=== PATIENT | female | born 1990 | race African-American/Black ===

== ENCOUNTER 2017-06-13 16:50 | Inpatient (IN) | payer OTHER ==
[~2017-06-13] VITALS: Ht 171.4 cm; Wt 96.6 kg
[2017-06-13 17:31] VITALS: BP 117/77; PULSE 82; RESP 18; Ht 171.4 cm; Wt 96.6 kg
[2017-06-13] MEDS ORDERED: PREN-103 PO (17:34)
[2017-06-13] MEDS ORDERED: LIDOCAINE 1% (MPF) 30 ML INJ INJ PRN (18:00)
[2017-06-13] MEDS ORDERED: OXYTOCIN 30 UNITS/LR 500 ML IV PRN (18:00)
[2017-06-13] MEDS ORDERED: OXYTOCIN 30 UNITS/LR 500 ML IV SCH ×2 (18:00)
[2017-06-13] MEDS ORDERED: IBUPROFEN 600 MG TAB PO PRN (18:00)
[2017-06-13] MEDS ORDERED: MISOPROSTOL 200 MCG TAB PR PRN (18:00)
[2017-06-13] MEDS ORDERED: LACTATED RINGER'S 1,000 ML IV PRN (18:00)
[2017-06-13] MEDS ORDERED: BUTORPHANOL 2 MG INJ IV PRN (18:00)
[2017-06-13] MEDS ORDERED: METHYLERGONOVINE 0.2 MG INJ IM PRN (18:00)
[2017-06-13] MEDS ORDERED: CARBOPROST 250 MCG INJ IM PRN (18:00)
[2017-06-13] MEDS: LACTATED RINGER'S 1,000 ML IV SCH (18:04)
[2017-06-13 18:28] LABS: BASOPHILS % 0.4 % (0.0-2.0); EOSINOPHILS % 0.1 % (0.0-7.0); HEMATOCRIT 39.9 % (37.0-47.0); HEMOGLOBIN 13.4 g/dl (12.0-16.0); LYMPHOCYTES # 1.4 10^3/ul (0.8-2.9); LYMPHOCYTES % 17.6 % (15.0-51.0); MEAN CORPUSCULAR HEMOGLOBIN 29.6 pg (29.0-33.0); MEAN CORPUSCULAR HGB CONC 33.6 g/dl (32.0-37.0); MEAN CORPUSCULAR VOLUME 88.1 fl (82.0-101.0); MEAN PLATELET VOLUME 11.2 fl (7.4-10.4); MONOCYTE # 0.5 10^3/ul (0.3-0.9); MONOCYTES % 6.8 % (0.0-11.0); NEUTROPHIL # 5.9 10^3/ul (1.6-7.5); NEUTROPHILS % 74.1 % (39.0-77.0); PLATELET COUNT 245 10^3/UL (140-415); RED BLOOD COUNT 4.53 10^6/ul (4.20-5.40); RED CELL DISTRIBUTION WIDTH 13.2 % (11.5-14.5); WHITE BLOOD COUNT 7.9 10^3/ul (4.8-10.8)
[2017-06-13] MEDS ORDERED: DINOPROSTONE 10 MG VAG SUPP VAG ONE (18:30)
[2017-06-13 18:45] LABS: INR 0.91; PROTIME 12.2 Sec (12.2-14.2)
[2017-06-13 18:46] LABS: PARTIAL THROMBOPLASTIN TIME 29.5 Sec (25.0-35.0)
--- NOTE | 2017-06-13 18:51 | RADRPT ---
PROCEDURE: US OB. CLINICAL INDICATION: Size and dates , post dates TECHNIQUE: Multiple sonographic images of the pelvis and gravid uterus were obtained. The images were reviewed on a PACS workstation. COMPARISON: No prior studies are available for comparison. FINDINGS: There is a single viable intrauterine gestation. Cardiac activity is present with 135 beats per min kaylene. There is a vertex presentation. The placenta is anterior. There is no evidence for an abruption or placenta previa. Measurements were made in order to determine age. The results are as follows: BPD =9.8 cm HC =33.9 cm AC =35.5 cm FL =7.8 cm Estimated gestational age of approximately 39 weeks and 4 days based on ultrasound measurements. Clinical age: 40 weeks and 6 days. The estimated date of delivery is 06/16/2017, based on ultrasound measurements. The EFW = 3812 g, 54%, based on LMP age. RPTAT: AA IMPRESSION: Single viable intrauterine gestation of approximately 39 weeks and 4 days based on ultrasound measu rements. .Cuong Burris MD, MD Date Time Electronically viewed and signed by .Cuong Burris MD, on 06/13/2017 18:50 .S/
[2017-06-14] MEDS: LACTATED RINGER'S 1,000 ML IV SCH ×5 (00:31→22:50)
[2017-06-14] MEDS: OXYTOCIN 30 UNITS/LR 500 ML IV SCH (09:04)
[2017-06-14] MEDS ORDERED: FENTAnyl 2MCG/ML-ROPIV 0.2% 100 ML ONE (13:16)
[2017-06-14] MEDS ORDERED: ONDANSETRON 4 MG INJ IV PRN (13:30)
[2017-06-14] MEDS ORDERED: DIPHENHYDRAMINE 50 MG INJ IV PRN (13:30)
[2017-06-14] MEDS ORDERED: NALOXONE (0.4 MG/ML) INJ IV PRN (13:30)
[2017-06-14] MEDS ORDERED: EPHEDrine SULFATE 50 MG/5 ML SYG IV PRN (13:30)
--- NOTE | 2017-06-14 15:04 | HP ---
Date/Time of Note Date/Time of Note DATE: 06/14/17 TIME: 15:02 OB - History Hx of Present Free Text/Dictation INDUCTION FOR 40.6 Care: Good Care Ultrasounds: Normal mid trimester US Obstetrical Complications: None Medical Complications: None Past Family/Social History * Past Medical, Surgical, Family and Obstetric Histories reviewed from chart. OB Admission Exam Vital Signs Vital Signs Vital Signs Date Time Temp Pulse Resp B/P Pulse Ox O2 Delivery O2 Flow Rate FiO2 06/13/17 17:31 98.3 82 18 117/77 Room Air Physical Exam HEENT: WNL Heart: Rhythm Normal Lungs: Clear, Equal Abdomen: WNL Extremities: Normal Reflexes: Normal Cervical Dilatation: 1cm Effacement: 50% Station: -3 Membranes: Ruptured Amniotic Fluid: Clear Heart Rate: 120's Accelerations: Accelerations Present Decelerations: No Decelerations Varibility: Moderate Contractions on Admission: 6-10 Minutes Apart Intensity: Moderate Last 72 hours Lab Results CBC & BMP 06/13/17 17:20 OB Assessment/Plan Reason for admission: induction of labor Plan: Induction UDAY SORENSEN MD Jun 14, 2017 15:04
[2017-06-14] MEDS ORDERED: DEXTROSE 5%-LR 1,000 ML IV PRN (21:00)
[2017-06-14] MEDS ORDERED: AMPICILLIN 2 GM/NS (PMX) 100 ML IV ONE (21:00)
[2017-06-15] MEDS: FENTAnyl 2MCG/ML-ROPIV 0.2% 100 ML BAG EPI SCH ×2 (01:05→12:44)
[2017-06-15] MEDS: AMPICILLIN 1 GM/NS (PMX) 50 ML IV SCH ×6 (01:05→21:00)
[2017-06-15] MEDS: LACTATED RINGER'S 1,000 ML IV SCH ×2 (01:06→06:39)
[2017-06-15] MEDS: OXYTOCIN 30 UNITS/LR 500 ML IV SCH (04:04)
--- NOTE | 2017-06-15 14:59 | PN ---
Date/Time of Note Date/Time of Note DATE: 06/15/17 TIME: 14:56 OB Subjective Subjective Subjective Comfortable with epidural. Denies any complaints. On ampicillin due to prolonged rupture membrane OB Objective Objective Objective General appearance: Alert and oriented 4. Does not appear to be in acute distress. Abdomen: Soft gravid, Fundal height consistent with gestational age. Estimated weight 7 lbs. 8 oz. Vaginal examination: 5.5/100%, -1 to 0 Vertex presentation NST: Category 2. Good variability. Some variable decelerations with quick recovery IUPC placed OB Assessment/Plan Other Assessment: Active labor underwent induction due to postdates Currently in first stage of labor GBS negative Receiving Pitocin NST category 2 We will continue to watch closely Anticipate CORBY CURRAN MD Jun 15, 2017 14:59
[2017-06-15 21:50] VITALS: BP 116/65; PULSE 97; RESP 19
[2017-06-15] MEDS ORDERED: LACTATED RINGER'S 1,000 ML IV* SCH (23:09)
[2017-06-15] MEDS ORDERED: BENZOCAINE 20% 56 ML SPRAY TOP PRN (23:30)
[2017-06-15] MEDS ORDERED: SENNA/DOCUSATE NA (8.6MG/50MG) TAB PO PRN (23:30)
[2017-06-15] MEDS ORDERED: WITCH HAZEL/GLYCERIN PAD PR PRN (23:30)
[2017-06-15] MEDS ORDERED: HYDROCODONE/APAP (5/325) TAB PO PRN ×2 (23:30)
[2017-06-15] MEDS ORDERED: CARBOPROST 250 MCG INJ IM PRN (23:30)
[2017-06-15] MEDS ORDERED: OXYTOCIN 30 UNITS/LR 500 ML IV PRN (23:30)
[2017-06-15] MEDS ORDERED: LANOLIN 7 GM TUBE TOP PRN (23:30)
[2017-06-15] MEDS ORDERED: MISOPROSTOL 200 MCG TAB PR PRN (23:30)
[2017-06-15] MEDS ORDERED: METHYLERGONOVINE 0.2 MG INJ IM PRN (23:30)
[2017-06-15] MEDS ORDERED: DIBUCAINE 1% 30 GM OINT PR PRN (23:30)
[2017-06-16] MEDS ORDERED: IBUPROFEN 600 MG TAB PO SCH
[2017-06-16] MEDS ORDERED: LACTATED RINGER'S 1,000 ML IV* SCH (00:10)
--- NOTE | 2017-06-16 00:10 | LDN ---
Date/Time of Note Date/Time of Note DATE: 06/16/17 TIME: 00:08 Delivery Summary June 15, 2017 Weeks of Gestation 41 weeks Placenta Delivered: Spontaneously Meconium: Thick Episiotomy: No Indication for episiotomy N/A Perineal laceration: 1 Laceration repair: first degree perineal and vaginal laceration and Bilateral labial laceration Perineal and vaginal lacerations repaired using 2-0 chromic Anesthesia type: None Estimated blood loss: 400 Sponge & Needle done & correct: Yes All needle counts correct: Yes Any foreign bodies felt in the: No Problems: Delivery Information Sex Infant Sex: female Apgars 1 Minute: 9 5 Minute: 9 Suctioning Nose & mouth suctioned at [place]: Yes Delee suction performed: Yes Umbilical Cord Cord presentations: no nuchal cord Cord Blood was obtained: Yes CORBY CURRAN MD Jun 16, 2017 00:10
[2017-06-16] MEDS ORDERED: morphine 4 MG/ML VIAL IV PRN (00:30)
[2017-06-16] MEDS ORDERED: CARBOPROST 250 MCG INJ IM PRN (00:30)
[2017-06-16] MEDS ORDERED: OXYTOCIN 30 UNITS/LR 500 ML IV PRN (00:30)
[2017-06-16] MEDS ORDERED: WITCH HAZEL/GLYCERIN PAD PR PRN (00:30)
[2017-06-16] MEDS ORDERED: ZOLPIDEM 5 MG TAB PO PRN (00:30)
[2017-06-16] MEDS ORDERED: ACETAMINOPHEN 325 MG TAB PO PRN (00:30)
[2017-06-16] MEDS ORDERED: DIPHENHYDRAMINE 25 MG CAP PO PRN (00:30)
[2017-06-16] MEDS ORDERED: ONDANSETRON 4 MG INJ IV PRN (00:30)
[2017-06-16] MEDS ORDERED: LANOLIN 7 GM TUBE TOP PRN (00:30)
[2017-06-16] MEDS ORDERED: METHYLERGONOVINE 0.2 MG INJ IM PRN (00:30)
[2017-06-16] MEDS ORDERED: MISOPROSTOL 200 MCG TAB PR PRN (00:30)
[2017-06-16] MEDS ORDERED: HYDROCODONE/APAP (5/325) TAB PO PRN (00:30)
[2017-06-16 01:07] LABS: HEMATOCRIT 33.2 % (37.0-47.0); HEMOGLOBIN 11.5 g/dl (12.0-16.0)
[2017-06-16 04:10] VITALS: BP 118/77; PULSE 65; RESP 19
[2017-06-16] MEDS: IBUPROFEN 600 MG TAB PO SCH ×3 (05:31→17:18)
[2017-06-16 07:30] VITALS: BP 104/73; PULSE 63; RESP 16
[2017-06-16] MEDS: SENNA/DOCUSATE NA (8.6MG/50MG) TAB PO SCH ×2 (08:38→20:59)
[2017-06-16 09:59] LABS: ABNORMAL IP MESSAGE 1; HEMATOCRIT 35.9 % (37.0-47.0); HEMOGLOBIN 12.1 g/dl (12.0-16.0); MEAN CORPUSCULAR HEMOGLOBIN 29.2 pg (29.0-33.0); MEAN CORPUSCULAR HGB CONC 33.7 g/dl (32.0-37.0); MEAN CORPUSCULAR VOLUME 86.7 fl (82.0-101.0); MEAN PLATELET VOLUME 10.7 fl (7.4-10.4); PLATELET COUNT 206 10^3/UL (140-415); RED BLOOD COUNT 4.14 10^6/ul (4.20-5.40); RED CELL DISTRIBUTION WIDTH 13.2 % (11.5-14.5); WHITE BLOOD COUNT 25.6 10^3/ul (4.8-10.8)
[2017-06-16 10:05] LABS: POSITIVE DIFF @See below
[2017-06-16 11:56] LABS: EOSINOPHILS % (M) 3 % (0-7); MONOCYTES % (M) 5 % (0-11); PLATELET ESTIMATE NORMAL; POIKILOCYTOSIS 1+ (0-0)
--- NOTE | 2017-06-16 13:08 | PN ---
Date/Time of Note Date/Time of Note DATE: 06/16/17 TIME: 13:07 OB Subjective Subjective Subjective Post day 1 Patient is doing well, Ambulatory She is afebrile Abdomen is soft , Fundus is firm Moderate amount of lochia Breasts are soft, Nipples are intact No calf tenderness. Perineum is healing well. Laboratory Tests Test 06/16/17 00:42 06/16/17 09:35 Hemoglobin 11.5g/dl 12.1g/dl Hematocrit 33.2% 35.9% White Blood Count 25.610^3/ul Red Blood Count 4.1410^6/ul Mean Corpuscular Volume 86.7fl Mean Corpuscular Hemoglobin 29.2pg Mean Corpuscular Hemoglobin Concent 33.7g/dl Red Cell Distribution Width 13.2% Platelet Count 75382^3/UL Mean Platelet Volume 10.7fl Neutrophils % % Segmented Neutrophils % (Manual) 73% Band Neutrophils % (Manual) 16% Lymphocytes % % Lymphocytes % (Manual) 4% Monocytes % % Monocytes % (Manual) 5% Eosinophils % % Eosinophils % (Manual) 3% Basophils % % Nucleated Red Blood Cells % 0.0/100WBC Neutrophils # 10^3/ul Neutrophils # (Manual) 19.710^3/ul Band Neutrophils # 4.010^3/ul Absolute Lymphocytes (Manual) 1.010^3/ul Lymphocytes # 10^3/ul Monocytes # 10^3/ul Absolute Monocytes (Manual) 1.210^3/ul Eosinophils # 10^3/ul Basophils # 10^3/ul Nucleated Red Blood Cells # 10^3/ul Platelet Estimate NORMAL Poikilocytosis 1+ Current Medications Medications (Trade) Dose Ordered Sig/Anand Route PRN Reason Start Time Stop Time Status Last Admin Dose Admin Lactated Ringer's (Lr) 1,000 ml @ 125 mls/hr Q8H IV 06/13/17 17:35 06/15/17 23:11 DC 06/15/17 06:39 Butorphanol Tartrate (Stadol) 2 mg Q2H PRN IV PAIN 06/13/17 18:00 06/15/17 23:11 DC Lidocaine 30 ml 30 ml ONCE PRN INJ EPISIOTOMY/TEARING 06/13/17 18:00 06/15/17 23:11 DC Oxytocin/Lactated Ringer's 500 ml @ 125 mls/hr ONCE -MAY REPEAT X1 IV 06/13/17 18:00 06/15/17 23:11 DC 06/15/17 20:00 Oxytocin/Lactated Ringer's 500 ml @ 125 mls/hr ONCE IV 06/13/17 18:00 06/15/17 23:11 DC Ibuprofen 600 mg 600 mg ONCE PRN PO Mild Pain (Pain Score 1-3) 06/13/17 18:00 06/15/17 23:11 DC Lactated Ringer's 1,000 ml @ 2,000 mls/hr Q30M PRN IV PRE-EPIDURAL BOLUS 06/13/17 18:00 06/15/17 23:11 DC Oxytocin/Lactated Ringer's 500 ml @ 0 mls/hr ONCE PRN IV For Hemorrhage Management 06/13/17 18:00 06/15/17 23:11 DC Methylergonovine Maleate (Methergine) 0.2 mg ONCE PRN IM VAGINAL BLEEDING 06/13/17 18:00 06/15/17 23:11 DC Carboprost Tromethamine (Hemabate) 250 mcg ONCE PRN IM VAGINAL BLEEDING 06/13/17 18:00 06/15/17 23:11 DC Misoprostol (Cytotec) 1,000 mcg ONCE PRN DE VAGINAL BLEEDING 06/13/17 18:00 06/15/17 23:11 DC Dinoprostone 10 mg 10 mg ONCE ONCE VAG 06/13/17 18:30 06/13/17 18:31 DC 06/13/17 20:02 Oxytocin/Lactated Ringer's 500 ml @ 0 mls/hr Q0M IV 06/14/17 08:30 06/15/17 23:11 DC 06/15/17 04:04 Naloxone HCl (Narcan) 0.1 mg Q2M PRN IV FOR RESP RATE 8 OR LESS 06/14/17 13:30 06/15/17 13:29 DC Diphenhydramine HCl (Benadryl) 25 mg Q6H PRN IV ITCHING 06/14/17 13:30 06/15/17 13:29 DC Ondansetron HCl (Zofran Inj) 4 mg Q6H PRN IV NAUSEA AND/OR VOMITING 06/14/17 13:30 06/15/17 13:29 DC Fentanyl/ Ropivacaine 100 ml EPIDURAL INFUSION EPI 06/14/17 13:30 06/15/17 23:11 DC 06/15/17 12:44 Ephedrine Sulfate 5 mg 5 mg PRN PRN IV BLOOD PRESSURE SUPPORT 06/14/17 13:30 06/15/17 23:11 DC Fentanyl/ Ropivacaine 100 ml @ ud STK-MED ONCE .ROUTE 06/14/17 13:16 06/14/17 13:17 DC Dextrose/Lactated Ringer's 1,000 ml @ 125 mls/hr Q8H PRN IV FHR minimal variability 06/14/17 21:00 06/15/17 23:11 DC 06/15/17 03:40 Ampicillin 100 ml @ 100 mls/hr ONCE ONCE IV 06/14/17 21:00 06/14/17 21:59 DC 06/14/17 20:52 Ampicillin 50 ml @ 100 mls/hr Q4H IV 06/15/17 01:00 06/15/17 23:11 DC 06/15/17 17:13 Lactated Ringer's (Lr) 1,000 ml @ 125 mls/hr Q8H IV* 06/15/17 23:09 06/16/17 00:14 DC Ibuprofen (Motrin) 600 mg Q6 PO 06/16/17 00:00 06/16/17 00:14 DC 06/15/17 23:30 Acetaminophen/ Hydrocodone Bitart ([place] (5/325)) 1 tab Q4H PRN PO PAIN LEVEL 1-5 06/15/17 23:30 06/16/17 00:14 DC Acetaminophen/ Hydrocodone Bitart ([place] (5/325)) 2 tab Q4H PRN PO PAIN LEVEL 6-10 06/15/17 23:30 06/16/17 00:14 DC Senna/Docusate Sodium (Senokot-S) 1 tab BID PRN PO CONSTIPATION 06/15/17 23:30 06/16/17 00:14 DC Witch Ruma/ Glycerin (Tucks Pads) 1 pad BEDSIDE MEDICATION PRN DE HEMORRHOID/EPISIOTMY PAIN 06/15/17 23:30 06/16/17 00:14 DC 06/15/17 23:30 Benzocaine (Dermoplast [place]) 1 spray BEDSIDE MEDICATION PRN TOP HEMORRHOID/EPISIOTMY PAIN 06/15/17 23:30 06/16/17 00:14 DC 06/15/17 23:30 Dibucaine (Nupercainal) 1 applic BEDSIDE MEDICATION PRN DE HEMORRHOID/EPISIOTMY PAIN 06/15/17 23:30 06/16/17 00:14 DC Lanolin 1 applic 1 applic BEDSIDE MEDICATION PRN TOP BEDSIDE FOR MARLEEN TO NIPPLES 06/15/17 23:30 06/16/17 00:14 DC Oxytocin/Lactated Ringer's 500 ml @ 0 mls/hr ONCE PRN IV For Hemorrhage Management 06/15/17 23:30 06/16/17 00:14 DC Methylergonovine Maleate (Methergine) 0.2 mg ONCE PRN IM VAGINAL BLEEDING 06/15/17 23:30 06/16/17 00:14 DC Carboprost Tromethamine (Hemabate) 250 mcg ONCE PRN IM VAGINAL BLEEDING 06/15/17 23:30 06/16/17 00:14 DC Misoprostol 1000 mcg 1,000 mcg ONCE PRN DE VAGINAL BLEEDING 06/15/17 23:30 06/16/17 00:14 DC Lactated Ringer's (Lr) 1,000 ml @ 125 mls/hr Q8H IV* 06/16/17 00:10 06/16/17 07:34 DC Morphine Sulfate (morphine) 1 mg Q3 PRN IV PAIN LEVEL 6-10 06/16/17 00:30 Ibuprofen (Motrin) 600 mg Q6 PO 06/16/17 06:00 06/16/17 11:35 Acetaminophen/ Hydrocodone Bitart ([place] (5/325)) 2 tab Q4H PRN PO PAIN LEVEL 6-10 06/16/17 00:30 Ondansetron HCl (Zofran Inj) 4 mg Q6H PRN IV NAUSEA AND/OR VOMITING 06/16/17 00:30 Diphenhydramine HCl (Benadryl) 25 mg Q6H PRN PO PRURITUS 06/16/17 00:30 Zolpidem Tartrate (Ambien) 5 mg QHS PRN PO INSOMNIA 06/16/17 00:30 Senna/Docusate Sodium (Senokot-S) 1 tab BID PO 06/16/17 09:00 06/16/17 08:38 Witch Ruma/ Glycerin (Tucks Pads) 1 pad BEDSIDE MEDICATION PRN DE HEMORRHOID/EPISIOTMY PAIN 06/16/17 00:30 Lanolin (Pha-W-Ckyono) 1 applic BEDSIDE MEDICATION PRN TOP BEDSIDE FOR MARLEEN TO NIPPLES 06/16/17 00:30 Measles/Mumps/ Rubella Vaccine Live (Mmr Ii Vaccine) 0.5 ml ONCE ONCE SC* 06/18/17 09:00 06/18/17 09:01 Diphtheria/ Tetanus/Acell Pertussis (Adacel) 0.5 ml ONCE ONCE IM* 06/18/17 09:00 06/18/17 09:01 Varicella Virus Vaccine Live (Varivax Vaccine With Diluent) 1,350 unit ONCE ONCE SC* 06/18/17 09:00 06/18/17 09:01 Acetaminophen 650 mg 650 mg Q4H PRN PO ELEVATED TEMPERATURE 06/16/17 00:30 Oxytocin/Lactated Ringer's 500 ml @ 0 mls/hr ONCE PRN IV For Hemorrhage Management 06/16/17 00:30 06/16/17 02:52 Methylergonovine Maleate (Methergine) 0.2 mg ONCE PRN IM VAGINAL BLEEDING 06/16/17 00:30 06/16/17 02:56 Carboprost Tromethamine (Hemabate) 250 mcg ONCE PRN IM VAGINAL BLEEDING 06/16/17 00:30 Misoprostol (Cytotec) 1,000 mcg ONCE PRN DE VAGINAL BLEEDING 06/16/17 00:30 Breast feeding the new born. JUAN PABLO BRIGGS MD Jun 16, 2017 13:08
--- NOTE | 2017-06-16 14:22 | DS ---
Date/Time of Note Date/Time of Note DATE: 06/16/17 TIME: 14:21 Discharge Summary Admission/Discharge Info Admit Date/Time Jun 13, 2017 at 16:50 Discharge Date/Time Discharge Diagnosis TERM PREG Patient Condition: Stable Procedures VAGINAL DELIVERY Hospital Course UNREMARKABLE Home Meds Reported Medications Prenatl Vit6/Iron/FA/B12/Ca/D3 (Mteryti Combo Pack) 1 Each Tablet.seq, 1 EACH PO , TAB 06/13/17 Primary Care Provider Not On Staff Doctor Pending Labs Laboratory Tests Test 06/16/17 00:42 06/16/17 09:35 Hemoglobin 11.5g/dl (12.0-16.0) 12.1g/dl (12.0-16.0) Hematocrit 33.2% (37.0-47.0) 35.9% (37.0-47.0) White Blood Count 25.610^3/ul (4.8-10.8) Red Blood Count 4.1410^6/ul (4.20-5.40) Mean Corpuscular Volume 86.7fl (82.0-101.0) Mean Corpuscular Hemoglobin 29.2pg (29.0-33.0) Mean Corpuscular Hemoglobin Concent 33.7g/dl (32.0-37.0) Red Cell Distribution Width 13.2% (11.5-14.5) Platelet Count 97333^3/UL (140-415) Mean Platelet Volume 10.7fl (7.4-10.4) Neutrophils % % (39.0-77.0) Segmented Neutrophils % (Manual) 73% (39-77) Band Neutrophils % (Manual) 16% (0-4) Lymphocytes % % (15.0-51.0) Lymphocytes % (Manual) 4% (15-51) Monocytes % % (0.0-11.0) Monocytes % (Manual) 5% (0-11) Eosinophils % % (0.0-7.0) Eosinophils % (Manual) 3% (0-7) Basophils % % (0.0-2.0) Nucleated Red Blood Cells % 0.0/100WBC (0.0-0.0) Neutrophils # 10^3/ul (1.6-7.5) Neutrophils # (Manual) 19.710^3/ul (1.7-7.5) Band Neutrophils # 4.010^3/ul (0.0-0.6) Absolute Lymphocytes (Manual) 1.010^3/ul (0.8-2.9) Lymphocytes # 10^3/ul (0.8-2.9) Monocytes # 10^3/ul (0.3-0.9) Absolute Monocytes (Manual) 1.210^3/ul (0.3-0.9) Eosinophils # 10^3/ul (0.0-0.5) Basophils # 10^3/ul (0.0-0.1) Nucleated Red Blood Cells # 10^3/ul (0.0-0.0) Platelet Estimate NORMAL Poikilocytosis 1+ (0-0) UDAY SORENSEN MD Jun 16, 2017 14:22
--- NOTE | 2017-06-16 14:23 | PD.PPDC ---
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 Condition Patient Condition: Stable Diet Diet: Resume Regular Diet Activity/Restrictions Activity: Normal Activity May Shower Restrictions: No Exercising No Lifting No Driving No Sexual Activity Nothing in the Vagina No [place] No Tampons, douche Wound/Drain Care Instructions Wound/Drain Care Instructions: Wash with soap and water Keep clean and dry Follow-up Follow-up with Physician: 3, Week/Weeks Return to clinic for [employer] Instructions: Fever greater than 101 Chills Worsening abdominal pain Excessive Vaginal Bleeding More than 2 pads per hour Unable to tolerate diet OB Instructions: Breast Tenderness Depression Blurried Vision Headache Surgical Instructions: Incisional Drainage Incisional Redness UDAY SORENSEN MD Jun 16, 2017 14:23
[2017-06-16 16:00] VITALS: BP 116/66; PULSE 64; RESP 16
[2017-06-16 19:30] VITALS: BP 123/69; RESP 18
[2017-06-17 03:50] VITALS: BP 108/66; PULSE 65; RESP 18
[2017-06-17] MEDS: IBUPROFEN 600 MG TAB PO SCH ×3 (05:27→11:56)
[2017-06-17 08:30] VITALS: BP 108/63; PULSE 63; RESP 18
[2017-06-17 09:12] LABS: BASOPHIL # 0.1 10^3/ul (0.0-0.1); BASOPHILS % 0.3 % (0.0-2.0); EOSINOPHILS # 0.2 10^3/ul (0.0-0.5); EOSINOPHILS % 0.9 % (0.0-7.0); HEMATOCRIT 32.5 % (37.0-47.0); HEMOGLOBIN 10.8 g/dl (12.0-16.0); LYMPHOCYTES % 11.5 % (15.0-51.0); MEAN CORPUSCULAR HEMOGLOBIN 28.8 pg (29.0-33.0); MEAN CORPUSCULAR HGB CONC 33.2 g/dl (32.0-37.0); MEAN CORPUSCULAR VOLUME 86.7 fl (82.0-101.0); MEAN PLATELET VOLUME 10.8 fl (7.4-10.4); MONOCYTE # 0.6 10^3/ul (0.3-0.9); MONOCYTES % 3.5 % (0.0-11.0); NEUTROPHIL # 14.6 10^3/ul (1.6-7.5); NEUTROPHILS % 82.5 % (39.0-77.0); PLATELET COUNT 182 10^3/UL (140-415); RED BLOOD COUNT 3.75 10^6/ul (4.20-5.40); RED CELL DISTRIBUTION WIDTH 13.4 % (11.5-14.5); WHITE BLOOD COUNT 17.6 10^3/ul (4.8-10.8)
[2017-06-17] MEDS: SENNA/DOCUSATE NA (8.6MG/50MG) TAB PO SCH (09:32)
[2017-06-18] MEDS ORDERED: MEASLES,MUMPS,RUBELLA VACCINE INJ SC* ONE (09:00)
[2017-06-18] MEDS ORDERED: VARICELLA VACCINE LIVE/PF 1,350 UNIT/0.5 ML ML SC* ONE (09:00)
[2017-06-18] MEDS ORDERED: DIPHTH/TET/ACEL PERTUSS (ADULT) 0.5 ML VIAL IM* ONE (09:00)
== END 2017-06-17 12:45 | disposition home or self-care (01) | DRG 775 ==
LOC: L-D 16:50 → PP1 06-15 21:39
PROVIDERS: ADMIT Obstetrics & Gynecology; ATTEND Obstetrics & Gynecology
PROC: 10E0XZZ Delivery of Products of Conception, External Approach (ICD-10-PCS; principal; 2017-06-14)
PROC: 0HQ9XZZ Repair Perineum Skin, External Approach (ICD-10-PCS; 2017-06-14)
PROC: 0UQMXZZ Repair Vulva, External Approach (ICD-10-PCS; 2017-06-14)
PROC: 3E0P3VZ Introduction of Hormone into Female Reproductive, Percutaneous Approach (ICD-10-PCS; 2017-06-14)
DX: O70.0 First degree perineal laceration during delivery (principal); O48.0 Post-term pregnancy; Z3A.41 41 weeks gestation of pregnancy; Z37.0 Single live birth
CPT/HCPCS: 62319; 76815; 85014; 85018; 85025; 85610; 85730; 86592; 86900; 86901; 87340; 99464; J0290; J2210; J2590; J3010; J7120